=== PATIENT | female | born 1990 | race American Indian/Alaskan Native ===

== ENCOUNTER 2022-01-22 17:56 | Outpatient (CLI) | payer OTHER ==
[2022-01-22 18:38] VITALS: BP 109/61
[2022-01-22] MEDS ORDERED: LACTATED RINGERS 1,000 ML IV ONE (18:55)
[2022-01-22] MEDS ORDERED: LACTATED RINGERS 1,000 ML ONE (18:56)
[2022-01-22 19:22] LABS: Bilirubin,Urine NEG (Negative); Blood,Urine NEG (Negative); Color,Urine Yellow (Yellow); Mucus,Urine FEW /HPF; Protein,Urine <15 mg/dL mg/dL (Negative)
[2022-01-22 19:40] LABS: Hematocrit 32.7 % (30.3-42.9); Hemoglobin 11.6 gm/dl (10.1-14.3); Mean Corpuscular HGB Conc 36 % (30-34); Mean Corpuscular Volume 99 fl (79-97); Platelet Count 185 K/mm3 (140-440); Red Blood Count 3.31 M/mm3 (3.65-5.03); Red Cell Distribution Width 13.2 % (13.2-15.2)
[2022-01-22 19:59] LABS: Alanine Aminotransferase 38 units/L (7-56); Albumin 3.8 g/dL (3.9-5); Blood Urea Nitrogen 7 mg/dL (7-17); Calcium 9.3 mg/dL (8.4-10.2); Hemolysis Index 88
[2022-01-22 20:01] LABS: BUN/Creatinine Ratio 14
[2022-01-22] MEDS ORDERED: ONDANSETRON 4 MG/2 ML INJ IV ONE (21:15)
--- NOTE | 2022-01-22 21:29 | Ultrasound Report ---
ULTRASOUND OBSTETRIC LIMITED INDICATION / CLINICAL INFORMATION: abd. pain. Clinical Gestational Age (GA) in weeks, days: 24, 6 TECHNIQUE: Transabdominal. COMPARISON: None available. FINDINGS: HEART RATE (beats per minute): 145 AMNIOTIC FLUID INDEX (cm) = 14.4 (normal = 7-24 cm) PRESENTATION: Cephalic. ADDITIONAL FINDINGS: There is a grade 1 anterior placenta. No abruption seen. IMPRESSION: 1. No evidence of abruption. Signer Name: Norman Alamo DO Signed: 01/22/2022 9:25 PM Workstation Name: [email or web address]
--- NOTE | 2022-01-22 21:33 | Ultrasound Report ---
ULTRASOUND ABDOMEN, LIMITED (RIGHT UPPER QUADRANT) INDICATION / CLINICAL INFORMATION: Abdominal pain. COMPARISON: None available. FINDINGS: PANCREAS: Visualized portion shows no significant abnormality. LIVER: No significant abnormality. Normal hepatopedal flow within the portal vein. GALLBLADDER: No significant abnormality. BILE DUCTS: No significant abnormality. Common bile duct measures 2 mm. FREE FLUID: None. ADDITIONAL FINDINGS: None. IMPRESSION: 1. No significant sonographic abnormality of the right upper quadrant. Signer Name: Norman Alamo DO Signed: 01/22/2022 9:29 PM Workstation Name: [email or web address]
== END 2022-01-22 22:00 | disposition home or self-care (01) ==
LOC: TRG 17:56 → APU 17:56 → TRG 22:00
PROVIDERS: ATTEND Obstetrics & Gynecology
DX: O26.892 Other specified pregnancy related conditions, second trimester (principal); R10.13 Epigastric pain; R10.30 Lower abdominal pain, unspecified; O21.2 Late vomiting of pregnancy; O99.512 Diseases of the respiratory system complicating pregnancy, second trimester; J45.909 Unspecified asthma, uncomplicated; O99.332 Smoking (tobacco) complicating pregnancy, second trimester; F17.200 Nicotine dependence, unspecified, uncomplicated; Z3A.24 24 weeks gestation of pregnancy
CPT/HCPCS: 36415; 76705; 76815; 80053; 81001; 85027; 96361; 96374; J2405; J7120

== ENCOUNTER 2022-03-12 15:20 | Outpatient (CLI) | payer OTHER ==
[2022-03-12 16:05] VITALS: BP 106/58
[2022-03-12] MEDS ORDERED: ACETAMINOPHEN W/CODEINE 300-30 MG TAB PO ONE (16:45)
[2022-03-12] MEDS ORDERED: ONDANSETRON 4 MG ODT TAB PO ONE (16:47)
[2022-03-12] MEDS ORDERED: LACTATED RINGERS 500 ML IV ONE (16:50)
[2022-03-12] MEDS ORDERED: LACTATED RINGERS 1,000 ML IV SCH (18:45)
[2022-03-12 19:17] LABS: Alanine Aminotransferase 15 units/L (7-56); Albumin 3.6 g/dL (3.9-5); Blood Urea Nitrogen 7 mg/dL (7-17); Calcium 8.6 mg/dL (8.4-10.2); Hemolysis Index 1
[2022-03-12 19:20] LABS: BUN/Creatinine Ratio 12
[2022-03-12] MEDS ORDERED: D5W/0.9% NACL 1,000 ML IV SCH (21:00)
== END 2022-03-12 20:25 | disposition left against medical advice (07) ==
LOC: TRG 15:20 → APU 15:23 → TRG 20:25
PROVIDERS: ATTEND Obstetrics & Gynecology
DX: O26.893 Other specified pregnancy related conditions, third trimester (principal); R52 Pain, unspecified; O99.513 Diseases of the respiratory system complicating pregnancy, third trimester; J45.909 Unspecified asthma, uncomplicated; O99.333 Smoking (tobacco) complicating pregnancy, third trimester; F17.200 Nicotine dependence, unspecified, uncomplicated; Z3A.32 32 weeks gestation of pregnancy
CPT/HCPCS: 36415; 59025; 80053; 82150; 83690; Q0162; J3490

== ENCOUNTER 2022-05-01 12:23 | Outpatient (CLI) | payer OTHER ==
[2022-05-01 13:31] VITALS: BP 115/53
--- NOTE | 2022-05-01 15:31 | Ultrasound Report ---
ULTRASOUND BIOPHYSICAL PROFILE INDICATION / CLINICAL INFORMATION: well being. COMPARISON: 01/22/2022 FINDINGS: Single live intrauterine . Clinical gestational age reported as 39 weeks and 0 day s. BREATHING MOVEMENT = 2 GROSS BODY MOVEMENT = 2 TONE = 2 QUALITATIVE AMNIOTIC FLUID VOLUME = 2 TOTAL BIOPHYSICAL SCORE = 8/8 AMNIOTIC FLUID INDEX (cm) = 13.0 PRESENTATION: Cephalic. HEART RATE (beats per minute): 135 IMPRESSION: 1. Single live intrauterine . No significant abnormality. 2. biophysical profile = /8 3. Amniotic fluid index is within normal limits, measuring 13.0 cm. Signer Name: Haris Morales MD Signed: 05/01/2022 3:27 PM Workstation Name: [email or web address]
== END 2022-05-01 14:57 | disposition home or self-care (01) ==
LOC: TRG 12:23 → APU 12:25 → TRG 14:57
PROVIDERS: ATTEND Obstetrics & Gynecology Gynecology
DX: O36.8130 Decreased fetal movements, third trimester, not applicable or unspecified (principal); Z3A.39 39 weeks gestation of pregnancy
CPT/HCPCS: 36415; 59025; 76815; 76819; 84112